=== PATIENT | female | born 1965 | race Caucasian/White ===

== ENCOUNTER 2024-07-08 07:18 | Day surgery (SDC) | payer MEDICARE, OTHER ==
[2024-07-01 11:17] VITALS: BP 103/68
[~2024-07-08] VITALS: Ht 165.1 cm; Wt 91.8 kg
[~2024-07-08 07:18] MED LIST: ALLER-TEC10 MG PO; GABAPENTIN300 MG PO; GLIPIZIDE10 MG PO; IBLOOD GLUCOSE TEST STRIP 1 EA TEST VI PRN; IPRAT-ALBUT 0.5-3 ML INH; K-TAB ER20 MEQ PO; LACTATED RINGER'S 1,000 ML IV SCH; LANTUS100 UNITS/ SUB-Q; LASIX20 MG PO; LIDOCAINE HCL 1% 5 ML SDV INJ ONE; MAGNESIUM250 M1 PO; METFORMIN HCL1000 MG PO; METOPROLOL TART50 MG PO; OMEGA 3 500 SO1 EACH PO; OMEPRAZOLE20 MG PO; PAPAYA100 MG PO; POTASSIUM99 M1 PO; PROAIR RESPICL90 MCG INH; PROMETHAZINE HC25 M1 PO; PULMICORT FLE180 MCG INH; TURMERIC500 M2 PO; VASCEPA1 GM PO; WOMEN'S DAILY1 EACH PO; ZINC50 MG PO
[2024-07-08 08:13] VITALS: BP 111/61
[2024-07-08] MEDS ORDERED: CALCIUM 500-VI1 EAC4 PO (08:23)
[2024-07-08] MEDS ORDERED: LIDOCAINE HCL 2% 5 ML SDV ONE (10:21)
[2024-07-08] MEDS ORDERED: propofoL 200 MG/20 ML VIAL ONE ×3 (10:21→10:48)
[2024-07-08] MEDS ORDERED: LACTATED RINGER'S 1,000 ML IV ONE (10:59)
--- NOTE | 2024-07-08 11:35 | NUR ---
07/08/24 1135 Yarely Peter 1104- PT ARRIVES TO THE PACU WITH A NATURAL AIRWAY AND RESPONDING TO QUESTIONS APPROPRIATELY. ALL MONITORS PUT IN PLACE. PT DENIES PAIN AND NAUSEA. LR INFUSING IN R FOREARM. PT ENCOURAGED TO COUGH AND DEEP BREATHE AND FOLLOWS COMMANDS. PT ALSO ENCOURAGED TO PASS GAS. VSS. PT ASKING FOR FOOD. 1117- MD AT BEDSIDE AND PLAN OF CARE DISCUSSED. ALL QUESTIONS AND CONCERNS ANSWERED. 1122- HOB INCREASED AND ICE CHIPS PROVIDED PER PT REQUEST. PT TOLERATING WELL. PT REPORTS FEELING "CRAMPY" AND THAT SHE IS PASSING GAS OFF AND ON. 1130- PT REPORTS 2/10 PAIN FOR CRAMPING THAT IS TOLERABLE AT THIS TIME. PT IS SITTING UP AND LOOKING AROUND THE PACU AND REPORTS HAVING TO USE THE RESTROOM. VSS.
[2024-07-08 11:44] VITALS: BP 136/100
--- NOTE | 2024-07-08 18:18 | OR ---
[facility] [address] [place], [place] [address] Signed DATE OF OPERATION: 07/08/2024 SURGEON: Dave Ga MD PREOPERATIVE DIAGNOSES: 1. History of gastritis, esophagitis, gastroesophageal reflux disease, small hiatal hernia and peptic ulcer disease. 2. 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 3. Minimal diverticulosis. 4. Moderate internal and external hemorrhoids. 5. Irritable bowel syndrome. 6. Sisters with colonic polyps. 7. A paternal aunt with colonic polyps under the age of 50. POSTOPERATIVE DIAGNOSES: 1. Tiny to small hiatal hernia. 2. No visible Matos's esophagus. 3. GE junction at 33 cm. 4. Moderate diffuse gastritis. 5. Moderate internal and external hemorrhoids. 6. Minimal sigmoid diverticulosis. PROCEDURES: 1. EGD with CLOtest and biopsies of the antrum at GE junction. 2. Colonoscopy without biopsy. ESTIMATED BLOOD LOSS: None. INDICATIONS: Arminda is a 59-year-old obese female, asked to see me for followup upper and lower endoscopy. She had upper and lower endoscopy in 2014 at the age of 50 [address] Charles. She had gastritis, esophagitis and possibly some metaplasia at the GE junction. There was no dysplasia. She had diverticulosis along with internal and external hemorrhoids. She always talks about intermittent small amounts of rectal bleeding associated with her hemorrhoids. She is known to have acid reflux as well. There was concern that she had peptic ulcer disease in the past. I helped her with upper and lower endoscopy in 2019 at the age of 54. Again, she had some intermittent rectal bleeding. I did not find any Matos's mucosa. She has just a small hiatal hernia and a little bit of gastritis associated with smoking. She had minimal diverticulosis along with moderate internal Electronically Signed By: DAVE GA MD 07/08/24 1569 PATIENT NAME: JOESPH WYLIE OPERATIVE REPORT DATE OF : 63 REPORT #: [id number] PHYSICIAN: DAVE GA MD PCP: KEYLA BAIRES REPORT IS CONFIDENTIAL AND NOT TO BE RELEASED WITHOUT AUTHORIZATION [facility] [address] [place], [place] [address] Signed and external hemorrhoids. She had a tiny hyperplastic polyp taken out of the colon. The CLOtest was negative. She returns on the five year plan knowing that her sisters have all had colonic polyps. In addition, a paternal aunt had colonic polyps under the age of 50. Arminda is also known to have irritable bowel syndrome. She told me she uses omeprazole and Pepcid with good results for the acid reflux. She confirms her irritable bowel syndrome. We know also that she has chronic pain and cervical stenosis and is concerned about having her neck extended too far. She is obese and has a long list of allergies and a full round face requiring CPAP mask for her sleep apnea. She is also diabetic. In that regard, she did require monitored anesthesia care today with propofol infusion. That proved to be a paz decision as she kept our anesthesia provider fairly busy. In the office, I gave Arminda pamphlets on both upper and lower endoscopy. She understands the nature of the two tests. There is risk including, but not limited to gas bloating, crampy abdominal pain, bleeding, perforation requiring surgery, and missed diagnosis. We also reviewed the written instructions for bowel prep line by line. It is the same bowel prep she has taken in the past. We have gone through her medications as well. I marked her preoperative sheet appropriately with respect to her diabetic medications and the turmeric. She understands an adult person has to take her home afterwards, usually that is her sister. She had expressed understanding and wished to proceed. DESCRIPTION OF PROCEDURE: Arminda was taken into our endoscopy suite and placed in the supine semi-recumbent position. A bite block was utilized. She was given propofol infusion per our nurse uranium processing supervisor. The adult gastroscope had been introduced and advanced out into the 3rd portion of the duodenum without difficulty. The duodenum and pyloric channel were not particularly concerning. However, she does have moderate diffuse gastritis I think mostly associated with her smoking. There are no ulcerations. We took biopsies of the antrum for CLOtest as well as pathologic review. Upon retroflexion of the scope, we could see just a small hiatal hernia. The scope was then withdrawn up through the area of the GE junction, which was compliant without stricture. She has her Z-line at 33 cm from the incisors. There was very minimal disruption to the Z-line. We do not see any obvious Matos's mucosa. We went ahead and took a biopsy just distal to the edge of the Z-line. There was no distal esophagitis. The middle and upper esophagus were unremarkable. After this, the gas was suctioned out and the gastroscope removed. Arminda tolerated the upper endoscopy quite well. Arminda was rotated into the left lateral decubitus position. She was maintained on IV propofol per our nurse uranium processing supervisor. A digital rectal exam was performed and she does have somewhat beefy circumferential external hemorrhoids. She had good sphincter tone. There were no masses. The adult colonoscope was introduced and advanced all around into the cecum under direct visualization of the camera. It took some extra sedation and abdominal compression in order to get the scope directly into the cecum itself. Her Electronically Signed By: DAVE GA MD 07/08/24 5489 PATIENT NAME: JOESPH WYLIE OPERATIVE REPORT DATE OF : 63 REPORT #: [id number] PHYSICIAN: DAVE GA MD PCP: KEYLA BAIRES REPORT IS CONFIDENTIAL AND NOT TO BE RELEASED WITHOUT AUTHORIZATION [facility] [address] [place], [place] [address] Signed prep was quite excellent. We could easily see the appendiceal orifice and the ileocecal valve. The scope was then slowly withdrawn. She does have some diverticula in the sigmoid colon. They are small in size, few in number, and scattered about. Once in the rectum, the scope was retroflexed and she does have moderate beefy internal hemorrhoid columns. After this, the gas was suctioned out and the colonoscope removed. Arminda tolerated the lower endoscopy quite well. RECOMMENDATIONS: I will see Arminda back in my office in 7 to 14 days to review her biopsy results. So far, we have not been able to confirm the Matos's esophagus visibly or with biopsies. She will stay on the five year plan for colonoscopies because of her family history. She will need monitored anesthesia care in the future based on what we reviewed above. MD DARNELL Elizalde/HECTORL /[id number] cc: MD Keyla Elizalde PA Copies: DAVE GA MD ~ Electronically Signed By: DAVE GA MD 07/08/24 1818 PATIENT NAME: JOESPH WYLIE OPERATIVE REPORT DATE OF : 63 REPORT #: [id number] PHYSICIAN: DAVE GA MD PCP: KEYLA BAIRES REPORT IS CONFIDENTIAL AND NOT TO BE RELEASED WITHOUT AUTHORIZATION
--- NOTE | 2024-07-10 09:56 | PATH ---
[facility] [address] [place], [place] [address] Signed SPECIMEN(S): A ANTRUM BIOPSY SPECIMEN(S): B GE JUNCTION SPECIMEN SOURCE: A. ANTRUM BIOPSY B. GE JUNCTION CLINICAL HISTORY: GERD; hiatal hernia; history of gastritis; family history of colon cancer; IBS; diverticulosis; rectal bleeding; history of polyps; internal and external hemorrhoids; moderate gastritis; small hiatal hernia; diverticulosis. FINAL PATHOLOGIC DIAGNOSIS: A. Stomach, antrum, biopsy: - Gastric antral mucosa with no significant pathologic changes - Negative for Helicobacter pylori with HE stains B. Gastroesophageal junction, biopsy: - Squamoglandular mucosa with no significant pathologic changes; negative for intestinal metaplasia BRP MICROSCOPIC EXAMINATION: Histologic sections of all submitted blocks are examined by light microscopy. These findings, together with the gross examination, support the pathologic diagnosis. GROSS DESCRIPTION: A. The specimen, labeled and designated "Fetterhoff, antrum biopsy," is received in formalin and consists of one sosa soft tissue fragment, 0.2 cm. Entirely submitted in (A1). B. The specimen, labeled and designated "Fetterhoff, GE junction biopsy," is received in formalin and consists of one sosa soft tissue fragment, 0.1 cm. Entirely submitted in (B1). JS (under the direct supervision of a pathologist) The Gross Description was prepared using a voice recognition system. The report was reviewed for accuracy; however, sound-alike word errors, addition and/or deletions may occur. If there is any question about this report, please contact Client Services. ADDITIONAL NOTES: PATIENT NAME: JOESPH WYLIE PATHOLOGY DATE OF : 63 REPORT #: [id number] PHYSICIAN: GLADIS HUANG PCP: CANDACE BAIRES REPORT IS CONFIDENTIAL AND NOT TO BE RELEASED WITHOUT AUTHORIZATION [facility] [address] [place], [place] [address] Signed Immunohistochemical and/or in situ hybridization studies if performed in this case included appropriate positive controls that reacted as expected. This test was developed and its performance characteristics determined by [facility]. It has not been cleared or approved by the U.S. Food and Drug Administration. The FDA has determined that such clearance or approval is not necessary. This test is used for clinical purposes. It should not be regarded as investigational or for research. [facility] is certified under the Clinical Laboratory Improvement Amendments of 1988 (CLIA) as qualified to perform high complexity clinical laboratory testing. PERFORMING LABORATORY: Technical component was performed by [facility], [address] [place] [address] (CLIA# [id number]). Professional interpretation was performed by [facility], [address] [place] [address] (CLIA#: [id number]). Diagnostician: Junito Neil MD Pathologist Electronically Signed 07/10/2024 Copies: ~ PATIENT NAME: JOESPH WYLIE PATHOLOGY DATE OF : 63 REPORT #: [id number] PHYSICIAN: GLADIS HUANG PCP: CANDACE BAIRES REPORT IS CONFIDENTIAL AND NOT TO BE RELEASED WITHOUT AUTHORIZATION
== END 2024-07-08 11:52 | disposition home or self-care (01) ==
LOC: DS 07:18
PROVIDERS: ATTEND Colon & Rectal Surgery
PROC: 0DJD8ZZ Inspection of Lower Intestinal Tract, Via Natural or Artificial Opening Endoscopic (ICD-10-PCS; 2024-07-08)
PROC: 0DB48ZX Excision of Esophagogastric Junction, Via Natural or Artificial Opening Endoscopic, Diagnostic (ICD-10-PCS; principal; 2024-07-08 09:45)
PROC: 0DB68ZX Excision of Stomach, Via Natural or Artificial Opening Endoscopic, Diagnostic (ICD-10-PCS; 2024-07-08 09:45)
DX: Z12.11 Encounter for screening for malignant neoplasm of colon (principal); K57.30 Diverticulosis of large intestine without perforation or abscess without bleeding; K64.8 Other hemorrhoids; K64.4 Residual hemorrhoidal skin tags; K29.70 Gastritis, unspecified, without bleeding; K44.9 Diaphragmatic hernia without obstruction or gangrene; K58.9 Irritable bowel syndrome, unspecified; K21.9 Gastro-esophageal reflux disease without esophagitis; E11.9 Type 2 diabetes mellitus without complications; F31.9 Bipolar disorder, unspecified; I10 Essential (primary) hypertension; J42 Unspecified chronic bronchitis; E78.2 Mixed hyperlipidemia; G47.33 Obstructive sleep apnea (adult) (pediatric); E66.9 Obesity, unspecified; Z68.33 Body mass index [BMI] 33.0-33.9, adult; Z86.0100 Personal history of colon polyps, unspecified; Z79.84 Long term (current) use of oral hypoglycemic drugs; Z79.899 Other long term (current) drug therapy; Z88.0 Allergy status to penicillin; Z88.1 Allergy status to other antibiotic agents; Z88.2 Allergy status to sulfonamides; Z88.8 Allergy status to other drugs, medicaments and biological substances; Z91.013 Allergy to seafood; Z91.030 Bee allergy status
CPT/HCPCS: 00813; 36415; 87077; J2003; J2704; J7121

== ENCOUNTER 2024-11-03 11:48 | Emergency (ER) | payer MEDICARE, OTHER ==
[~2024-11-03] VITALS: Ht 165.1 cm; Wt 88.5 kg
[~2024-11-03 11:48] MED LIST changes: +CALCIUM 500-VI1 EAC4 PO; -IBLOOD GLUCOSE TEST STRIP 1 EA TEST VI PRN; -LACTATED RINGER'S 1,000 ML IV SCH; -LIDOCAINE HCL 1% 5 ML SDV INJ ONE
[2024-11-03 12:09] LABS: BASOPHILS 0.5 % (0-2); EOSINOPHILS 0.8 % (0-6); HEMATOCRIT 40.3 % (35.0-50.0); HEMOGLOBIN 13.8 g/dL (12.0-18.0); LYMPHOCYTES 38.5 % (24-44); MCH 29.3 (27-36); MCHC 34.2 g/dl (30-36); MCV 85.6 fl (81-99); MONOCYTES 5.2 % (0-12); PLATELET COUNT 282 K/uL (140-440); RBC 4.71 M/ul (4.3-5.7); RDW 16.1 (10.5-15.0)
[2024-11-03] MEDS ORDERED: LORazepam 2 MG/ML VIAL IV PRN ×2 (12:15)
[2024-11-03] MEDS ORDERED: Insulin Regular, Human 100 UNIT/ML ML SUB-Q ONE (12:15)
[2024-11-03] MEDS ORDERED: SODIUM CHLORIDE 0.9% 500 ML IV PRN (12:15)
[2024-11-03 12:17] LABS: INR 0.91 (0.80-1.30); PROTIME 11.7 Sec (11.2-14.2)
[2024-11-03 12:26] LABS: ALBUMIN 3.5 g/dL (3.4-5.0); ALBUMIN/GLOBULIN RATIO 0.92 (1.1-2.4); ANION GAP 13.4 (7-21); BILIRUBIN, TOTAL 0.2 mg/dL (0.2-1.0); BUN/CREATININE RATIO 14.6 (6.0-28.6); CALCIUM 9.2 mg/dL (8.5-10.1); CREATININE, SERUM 0.89 mg/dL (0.55-1.02); MAGNESIUM 1.8 mg/dL (1.8-2.4); POTASSIUM 4.4 mmol/L (3.5-5.1); PROTEIN, TOTAL 7.3 g/dL (6.4-8.2)
[2024-11-03 12:33] LABS: ALCOHOL, MEDICAL <3 ng/dL (<3)
[2024-11-03 13:30] VITALS: BP 121/74
[2024-11-03 13:34] LABS: AMPHETAMINES, URINE NEGATIVE (NEGATIVE); BARBITURATES, URINE NEGATIVE (NEGATIVE); BENZODIAZEPINE, URINE NEGATIVE (NEGATIVE); BUPRENORPHINE, URINE NEGATIVE (NEGATIVE); CANNABINOID, URINE NEGATIVE (NEGATIVE); COCAINE, URINE NEGATIVE (NEGATIVE); ECSTASY, URINE NEGATIVE (NEGATIVE); FENTANYL, URINE NEGATIVE (NEGATIVE); METHADONE, URINE NEGATIVE (NEGATIVE); OPIATES, URINE NEGATIVE (NEGATIVE); OXYCODONE, URINE NEGATIVE (NEGATIVE); PHENCYCLIDINE, URINE NEGATIVE (NEGATIVE)
--- NOTE | 2024-11-03 20:43 | EKG ---
[facility] [address] [facility] [place] [address] Signed Normal sinus rhythm Normal ECG When compared with ECG of 01-JUL-2024 11:23, No significant change was found Confirmed by Driss Lee MD () on 11/03/2024 8:42:58 PM Electronically Signed By: DRISS LEE MD 11/03/242042 PATIENT NAME: JOESPH WYLIE Electrocardiogram DATE OF : 63 PHYSICIAN: DRISS LEE MD REPORT #: [id number] REPORT IS CONFIDENTIAL AND NOT TO BE RELEASED WITHOUT AUTHORIZATION
== END 2024-11-03 13:36 | disposition home or self-care (01) ==
LOC: ED 11:48
PROVIDERS: Emergency Medicine
DX: R56.9 Unspecified convulsions (principal); E11.9 Type 2 diabetes mellitus without complications; I10 Essential (primary) hypertension; J44.9 Chronic obstructive pulmonary disease, unspecified; F17.200 Nicotine dependence, unspecified, uncomplicated; Z88.2 Allergy status to sulfonamides; Z88.8 Allergy status to other drugs, medicaments and biological substances; Z88.1 Allergy status to other antibiotic agents; Z91.030 Bee allergy status; Z88.5 Allergy status to narcotic agent; Z88.0 Allergy status to penicillin; Z91.013 Allergy to seafood; Z79.4 Long term (current) use of insulin; Z79.84 Long term (current) use of oral hypoglycemic drugs; Z79.899 Other long term (current) drug therapy
CPT/HCPCS: 36415; 70450; 71045; 80053; 80307; 83036; 83735; 84443; 84484; 85025; 85610; 93005; 93010; 96374; 99284-25; G0480; J1815; J2060; J7040